=== PATIENT | male | born 1985 | race African-American/Black ===

== ENCOUNTER 2019-12-24 14:25 | Inpatient (IN) | payer OTHER ==
[~2019-12-24] VITALS: Ht 167.6 cm; Wt 75.5 kg
[2019-12-24] MEDS ORDERED: HALO5TAB23 PO (15:09)
[2019-12-24] MEDS ORDERED: CLOZ25TA PO (15:09)
[2019-12-24] MEDS ORDERED: GLYC2TAB21 PO (15:09)
[2019-12-24] MEDS ORDERED: LORA-1000 PO (15:09)
[2019-12-24] MEDS ORDERED: LITH300C3 PO (15:09)
[2019-12-24] MEDS ORDERED: HALO10 PO (15:13)
[2019-12-24 15:30] LABS: BASOPHILS % (AUTO) 0.2 % (0.0-2.0); EOSINOPHILS % (AUTO) 2.4 % (1.0-6.0); HEMATOCRIT 46.9 % (41-53); HEMOGLOBIN 15.4 g/dL (13.5-17.5); LYMPHOCYTES % (AUTO) 13.6 % (22.0-44.0); MEAN CORPUSCULAR HEMOGLOBIN 27.2 pg (26.0-34.0); MEAN CORPUSCULAR HGB CONC 32.9 G/dL (31.0-37.0); MEAN CORPUSCULAR VOLUME 83 fL (80-100); MONOCYTES # (AUTO) 0.6 K/uL (0.1-1.0); MONOCYTES % (AUTO) 8.9 % (2.0-9.0); NEUTROPHILS # (AUTO) 5.3 K/uL (1.8-7.7); NEUTROPHILS % (AUTO) 74.9 % (40.0-70.0); PLATELET COUNT (AUTO) 194 K/uL (150-450); RED BLOOD CELL COUNT(AUTO) 5.68 MIL/uL (4.50-5.90); RED CELL DISTRIBUTION WIDTH 14.7 % (11.5-14.5)
[2019-12-24 15:45] LABS: ANION GAP 9 mmol/L (8-16); CALCIUM, TOTAL 9.6 mg/dL (8.8-10.5); CARBON DIOXIDE 26 mmol/L (22-29); CHLORIDE 106 mmol/L (98-107); CREATININE 0.94 mg/dL (0.60-1.30); GLOMERULAR FILTR. RATE CALC > 60 mL/min (>60); GLUCOSE,RANDOM 94 mg/dL (70-110); LITHIUM 0.63 mmol/L (0.60-1.20); POTASSIUM 3.5 mmol/L (3.5-5.1); SODIUM SERUM 141 mmol/L (136-145); UREA NITROGEN, BLOOD 9 mg/dL (7-18)
[2019-12-24 15:51] LABS: ALANINE AMINOTRANSFERASE 28 U/L (12-78); ALBUMIN 3.9 g/dL (3.4-5.0); ALKALINE PHOSPHATASE 57 U/L (46-116); ASPARTATE AMINOTRANSFERASE 23 U/L (15-37); TOTAL PROTEIN, SERUM 7.6 g/dL (6.4-8.2)
[2019-12-24 17:31] LABS: AMPHET/METH SCREEN,URINE NEGATIVE (NEGATIVE); BARBITURATE SCREEN, URINE NEGATIVE (NEGATIVE); BENZODIAZEPINES SCREEN,URINE NEGATIVE (NEGATIVE); CANNABINOID SCREEN,URINE NEGATIVE (NEGATIVE); COCAINE SCREEN,URINE NEGATIVE (NEGATIVE); METHADONE SCREEN, URINE NEGATIVE (NEGATIVE); OPIATE SCREEN,URINE NEGATIVE (NEGATIVE)
[2019-12-24 17:36] LABS: PHENCYCLIDINE SCREEN,URINE NEGATIVE (NEGATIVE)
[2019-12-24] MEDS ORDERED: SODIUM CHLORIDE 0.9% 1,000 ML IV ONE (17:45)
[2019-12-24] MEDS ORDERED: ONDANSETRON HCL 4 MG/2 ML VIAL IVP PRN ×2 (18:00→22:45)
[2019-12-24] MEDS ORDERED: ACETAMINOPHEN 325 MG TABLET PO PRN ×2 (18:00→22:45)
[2019-12-24] MEDS ORDERED: 0.9% SODIUM CHLORIDE 10 ML SYRINGE IVP PRN ×2 (18:00→22:45)
[2019-12-24 21:04] VITALS: BP 127/96
[2019-12-24] MEDS ORDERED: SODIUM CHLORIDE 0.9% 1,000 ML IV SCH (22:30)
[2019-12-24] MEDS ORDERED: OxyCODONE HCL/ACETAMINOPHEN 5-325 MG TABLET PO PRN ×2 (22:45)
[2019-12-24] MEDS ORDERED: MAGNESIUM HYDROXIDE SUSPENSION 30 ML UDCUP PO PRN (22:45)
[2019-12-24 23:14] VITALS: BP 123/86
[2019-12-25 02:17] LABS: APPEARANCE,URINE CLEAR (CLEAR); BILIRUBIN,URINE NEGATIVE (NEGATIVE); GLUCOSE, URINE (UA) NEGATIVE (NEGATIVE); KETONES,URINE NEGATIVE (NEGATIVE); LEUKOCYTE ESTERASE ,URINE NEGATIVE (NEGATIVE); NITRATE,URINE NEGATIVE (NEGATIVE); PH,URINE 7.5 (5.0-8.0); PROTEIN,URINE NEGATIVE (NEGATIVE); UROBILINOGEN,URINE 0.2 mg/dL (<=1.0)
[2019-12-25 02:26] LABS: OCCULT BLOOD,URINE NEGATIVE (NEGATIVE)
[2019-12-25 04:01] VITALS: BP 114/78
[2019-12-25 06:51] LABS: BASOPHILS % (AUTO) 0.2 % (0.0-2.0); EOSINOPHILS % (AUTO) 3.2 % (1.0-6.0); HEMATOCRIT 43.8 % (41-53); HEMOGLOBIN 14.6 g/dL (13.5-17.5); LYMPHOCYTES # (AUTO) 1.9 K/uL (1.0-4.8); LYMPHOCYTES % (AUTO) 21.1 % (22.0-44.0); MEAN CORPUSCULAR HEMOGLOBIN 27.4 pg (26.0-34.0); MEAN CORPUSCULAR HGB CONC 33.2 G/dL (31.0-37.0); MEAN CORPUSCULAR VOLUME 83 fL (80-100); MONOCYTES # (AUTO) 0.9 K/uL (0.1-1.0); MONOCYTES % (AUTO) 9.7 % (2.0-9.0); NEUTROPHILS # (AUTO) 6.1 K/uL (1.8-7.7); NEUTROPHILS % (AUTO) 65.8 % (40.0-70.0); PLATELET COUNT (AUTO) 200 K/uL (150-450); RED CELL DISTRIBUTION WIDTH 14.5 % (11.5-14.5)
[2019-12-25 07:16] LABS: ALANINE AMINOTRANSFERASE 28 U/L (12-78); ALBUMIN 3.7 g/dL (3.4-5.0); ALKALINE PHOSPHATASE 62 U/L (46-116); ANION GAP 9 mmol/L (8-16); ASPARTATE AMINOTRANSFERASE 20 U/L (15-37); BILIRUBIN,TOTAL 0.7 mg/dL (0.1-1.0); CALCIUM, TOTAL 9.1 mg/dL (8.8-10.5); CARBON DIOXIDE 25 mmol/L (22-29); CHLORIDE 112 mmol/L (98-107); CREATININE 0.85 mg/dL (0.60-1.30); GLOMERULAR FILTR. RATE CALC > 60 mL/min (>60); GLUCOSE,RANDOM 96 mg/dL (70-110); POTASSIUM 3.6 mmol/L (3.5-5.1); SODIUM SERUM 146 mmol/L (136-145); TOTAL PROTEIN, SERUM 7.2 g/dL (6.4-8.2); UREA NITROGEN, BLOOD 8 mg/dL (7-18)
[2019-12-25 07:56] VITALS: BP 130/92
[2019-12-25] MEDS: DOCUSATE SODIUM 100 MG CAPSULE PO SCH ×3 (09:00→20:38)
[2019-12-25] MEDS: FAMOTIDINE 10 MG/ML 2 ML VIAL IVP SCH (09:06)
[2019-12-25] MEDS: METOPROLOL TARTRATE 25 MG TABLET PO SCH ×3 (09:06→20:37)
[2019-12-25 11:19] VITALS: BP 130/85
[2019-12-25] MEDS ORDERED: DEXTROSE 5%-WATER 500 ML IV ONE (14:00)
[2019-12-25 15:33] VITALS: BP 124/93
[2019-12-25 19:29] VITALS: BP 111/73
[2019-12-25 23:39] VITALS: BP 107/65
[2019-12-26 04:52] VITALS: BP 133/80
[2019-12-26 06:46] LABS: BASOPHILS % (AUTO) 0.2 % (0.0-2.0); EOSINOPHILS % (AUTO) 4.6 % (1.0-6.0); HEMATOCRIT 42.4 % (41-53); HEMOGLOBIN 14.1 g/dL (13.5-17.5); LYMPHOCYTES # (AUTO) 1.7 K/uL (1.0-4.8); LYMPHOCYTES % (AUTO) 20.5 % (22.0-44.0); MEAN CORPUSCULAR HEMOGLOBIN 27.5 pg (26.0-34.0); MEAN CORPUSCULAR HGB CONC 33.3 G/dL (31.0-37.0); MEAN CORPUSCULAR VOLUME 82 fL (80-100); MONOCYTES # (AUTO) 1.1 K/uL (0.1-1.0); MONOCYTES % (AUTO) 13.6 % (2.0-9.0); NEUTROPHILS % (AUTO) 61.1 % (40.0-70.0); PLATELET COUNT (AUTO) 207 K/uL (150-450); RED BLOOD CELL COUNT(AUTO) 5.15 MIL/uL (4.50-5.90); RED CELL DISTRIBUTION WIDTH 14.6 % (11.5-14.5)
[2019-12-26 06:56] LABS: ANION GAP 9 mmol/L (8-16); CARBON DIOXIDE 25 mmol/L (22-29); CHLORIDE 108 mmol/L (98-107); CREATININE 0.83 mg/dL (0.60-1.30); GLOMERULAR FILTR. RATE CALC > 60 mL/min (>60); GLUCOSE,RANDOM 94 mg/dL (70-110); POTASSIUM 4.1 mmol/L (3.5-5.1); SODIUM SERUM 142 mmol/L (136-145); UREA NITROGEN, BLOOD 11 mg/dL (7-18)
[2019-12-26 07:04] LABS: CALCIUM, TOTAL 8.7 mg/dL (8.8-10.5)
[2019-12-26 07:22] VITALS: BP 105/65
[2019-12-26 07:54] VITALS: BP 134/91
[2019-12-26] MEDS: METOPROLOL TARTRATE 25 MG TABLET PO SCH ×2 (07:57→16:01)
[2019-12-26] MEDS: DOCUSATE SODIUM 100 MG CAPSULE PO SCH (07:57)
[2019-12-26] MEDS: FAMOTIDINE 10 MG/ML 2 ML VIAL IVP SCH (07:57)
[2019-12-26 11:12] VITALS: BP 116/80
[2019-12-26] MEDS ORDERED: LITH300C3 PO (12:40)
[2019-12-26] MEDS ORDERED: DOCU-342 PO (12:40)
[2019-12-26] MEDS ORDERED: GLYC2TAB21 PO (12:40)
[2019-12-26] MEDS ORDERED: CLOZ100T57 PO ×2 (12:40)
[2019-12-26] MEDS ORDERED: ATRO10DR SL (12:45)
[2019-12-26] MEDS ORDERED: METO25 PO (13:11)
[2019-12-26 15:39] VITALS: BP 122/75
== END 2019-12-26 18:15 | DRG 52 ==
LOC: EMS 14:32 → 5S 20:00
PROVIDERS: ADMIT Internal Medicine; ATTEND Internal Medicine
DX: G93.41 Metabolic encephalopathy (principal); F20.0 Paranoid schizophrenia; R00.0 Tachycardia, unspecified; I10 Essential (primary) hypertension; Z91.14 Patient's other noncompliance with medication regimen
CPT/HCPCS: 51701; 70450; 83735; 93005; 93306; G0480; J3490; J7030; J7060

== ENCOUNTER 2019-12-26 16:24 | Inpatient (IN) | payer MEDICAID ==
[~2019-12-26] VITALS: Ht 177.8 cm; Wt 71.2 kg
[~2019-12-26 16:24] MED LIST: ATRO10DR SL; CLOZ100T32 PO; CLOZ25TA PO; DOCU-342 PO; GLYC2TAB21 PO; HALO10 PO; LITH300C3 PO; LORA-1000 PO; METO25 PO
[2019-12-26] MEDS ORDERED: ZOLPIDEM TARTRATE 10 MG TABLET PO PRN (18:45)
[2019-12-26 19:45] VITALS: BP 116/78
[2019-12-27 05:43] VITALS: BP 117/67
[2019-12-27 08:23] VITALS: BP 114/46
[2019-12-27] MEDS ORDERED: LOPERAMIDE HCL 2 MG CAPSULE PO PRN (09:00)
[2019-12-27] MEDS ORDERED: PETROLATUM,WHITE 28 GM JELLY TP PRN (09:00)
[2019-12-27] MEDS ORDERED: ALBUTEROL SULFATE HFA 90 MCG/PUFF 8 GM INHALER IH PRN (09:00)
[2019-12-27] MEDS ORDERED: ONDANSETRON HCL 4 MG TABLET PO PRN (09:00)
[2019-12-27] MEDS ORDERED: MAGNESIUM HYDROXIDE SUSPENSION 30 ML UDCUP PO PRN (09:00)
[2019-12-27] MEDS ORDERED: GuaiFENesin/D-METHORPHAN [SUGAR-FREE] 200-20MG/10 ML SYRUP UDCUP PO PRN (09:00)
[2019-12-27] MEDS ORDERED: NICOTINE 14 MG/24 HOUR PATCH TD PRN (09:00)
[2019-12-27] MEDS ORDERED: MAG HYDROX/AL HYDROX/SIMETH ES 30 ML SUSPENSION UDCUP PO PRN (09:00)
[2019-12-27] MEDS ORDERED: IBUPROFEN 400 MG TABLET PO PRN (09:00)
[2019-12-27] MEDS ORDERED: DOCUSATE SODIUM 100 MG CAPSULE PO PRN (09:00)
[2019-12-27] MEDS ORDERED: ACETAMINOPHEN 325 MG TABLET PO PRN (09:00)
[2019-12-27] MEDS ORDERED: CloNIDine HCL 0.1 MG TABLET PO PRN (09:00)
[2019-12-27] MEDS: METOPROLOL TARTRATE 25 MG TABLET PO SCH ×3 (10:02→16:30)
[2019-12-27 16:23] VITALS: BP 122/86
[2019-12-28 05:23] VITALS: BP 132/75
[2019-12-28] MEDS: METOPROLOL TARTRATE 25 MG TABLET PO SCH ×3 (09:12→16:18)
[2019-12-28 09:17] VITALS: BP 119/61
[2019-12-28 16:12] VITALS: BP 107/68
[2019-12-29 05:29] VITALS: BP 119/69
[2019-12-29 08:12] VITALS: BP 103/60
[2019-12-29] MEDS: METOPROLOL TARTRATE 25 MG TABLET PO SCH ×3 (08:59→16:28)
[2019-12-29 12:55] VITALS: BP 94/60
[2019-12-29 13:45] VITALS: BP 106/62
[2019-12-29] MEDS: LORazepam 2 MG TABLET PO PRN (18:36)
[2019-12-29] MEDS: HALOPERIDOL 5 MG TABLET PO PRN (18:36)
[2019-12-29 18:47] VITALS: BP 119/68
[2019-12-30 06:07] VITALS: BP 133/73
[2019-12-30 08:22] LABS: BASOPHILS % (AUTO) 0.3 % (0.0-2.0); EOSINOPHILS % (AUTO) 4.2 % (1.0-6.0); HEMATOCRIT 43.6 % (41-53); HEMOGLOBIN 14.4 g/dL (13.5-17.5); LYMPHOCYTES # (AUTO) 1.7 K/uL (1.0-4.8); LYMPHOCYTES % (AUTO) 28.9 % (22.0-44.0); MEAN CORPUSCULAR HEMOGLOBIN 27.5 pg (26.0-34.0); MEAN CORPUSCULAR HGB CONC 33.1 G/dL (31.0-37.0); MEAN CORPUSCULAR VOLUME 83 fL (80-100); MONOCYTES # (AUTO) 0.6 K/uL (0.1-1.0); MONOCYTES % (AUTO) 10.4 % (2.0-9.0); NEUTROPHILS # (AUTO) 3.3 K/uL (1.8-7.7); NEUTROPHILS % (AUTO) 56.2 % (40.0-70.0); PLATELET COUNT (AUTO) 194 K/uL (150-450); RED BLOOD CELL COUNT(AUTO) 5.25 MIL/uL (4.50-5.90); RED CELL DISTRIBUTION WIDTH 14.1 % (11.5-14.5)
[2019-12-30 08:50] VITALS: BP 104/66
[2019-12-30] MEDS ORDERED: CloZAPine 25 MG TABLET PO SCH (09:00)
[2019-12-30] MEDS: METOPROLOL TARTRATE 25 MG TABLET PO SCH ×3 (09:34→16:15)
[2019-12-30 12:35] VITALS: BP 109/66
[2019-12-30 16:11] VITALS: BP 111/70
[2019-12-31 06:27] VITALS: BP 120/78
[2019-12-31] MEDS: METOPROLOL TARTRATE 25 MG TABLET PO SCH ×3 (08:34→17:16)
[2019-12-31] MEDS ORDERED: CloZAPine 25 MG TABLET PO SCH ×2 (09:00→21:00)
[2019-12-31 09:53] VITALS: BP 112/60
[2019-12-31 12:50] VITALS: BP 113/71
[2019-12-31 17:15] VITALS: BP 102/70
[2020-01-01 01:30] VITALS: BP 120/71
[2020-01-01] MEDS: LORazepam 2 MG TABLET PO PRN (08:54)
[2020-01-01] MEDS: METOPROLOL TARTRATE 25 MG TABLET PO SCH ×3 (08:54→16:42)
[2020-01-01] MEDS ORDERED: CloZAPine 25 MG TABLET PO SCH ×2 (09:00→21:00)
[2020-01-01 09:22] VITALS: BP 104/68
[2020-01-01 13:10] VITALS: BP 112/74
[2020-01-01 16:00] VITALS: BP 108/67
[2020-01-02 05:33] VITALS: BP 100/62
[2020-01-02] MEDS: METOPROLOL TARTRATE 25 MG TABLET PO SCH ×3 (09:24→17:10)
[2020-01-02] MEDS: CloZAPine 25 MG TABLET PO SCH ×2 (09:24→20:55)
[2020-01-02] MEDS: LORazepam 2 MG TABLET PO PRN (09:47)
[2020-01-02 10:42] VITALS: BP 110/61
[2020-01-02 12:55] VITALS: BP 98/60
[2020-01-02 18:00] VITALS: BP 106/68
[2020-01-03 03:15] VITALS: BP 110/70
[2020-01-03 08:37] VITALS: BP 110/83
[2020-01-03] MEDS: METOPROLOL TARTRATE 25 MG TABLET PO SCH ×3 (08:47→17:56)
[2020-01-03] MEDS: CloZAPine 25 MG TABLET PO SCH ×2 (08:47→21:19)
[2020-01-03 16:36] VITALS: BP 115/66
[2020-01-04 05:23] VITALS: BP 112/70
[2020-01-04 08:47] VITALS: BP 108/63
[2020-01-04] MEDS: METOPROLOL TARTRATE 25 MG TABLET PO SCH ×3 (08:56→16:32)
[2020-01-04] MEDS ORDERED: CloZAPine 25 MG TABLET PO SCH (09:00)
[2020-01-04 16:07] VITALS: BP 109/78
[2020-01-04] MEDS ORDERED: CloZAPine 100 MG TABLET PO SCH (21:00)
[2020-01-05 00:12] VITALS: BP 121/82
[2020-01-05] MEDS: METOPROLOL TARTRATE 25 MG TABLET PO SCH ×3 (08:26→16:14)
[2020-01-05 08:46] VITALS: BP 97/64
[2020-01-05] MEDS ORDERED: CloZAPine 25 MG TABLET PO SCH (09:00)
[2020-01-05 12:45] VITALS: BP 105/72
[2020-01-05 16:25] VITALS: BP 115/77
[2020-01-05] MEDS: LORazepam 2 MG TABLET PO PRN (17:40)
[2020-01-05] MEDS ORDERED: CloZAPine 100 MG TABLET PO SCH (21:00)
[2020-01-06 00:36] VITALS: BP 110/80
[2020-01-06 08:07] VITALS: BP 105/68
[2020-01-06] MEDS: METOPROLOL TARTRATE 25 MG TABLET PO SCH ×3 (08:09→16:10)
[2020-01-06 08:20] LABS: BASOPHILS % (AUTO) 0.3 % (0.0-2.0); EOSINOPHILS % (AUTO) 6.6 % (1.0-6.0); HEMATOCRIT 41.8 % (41-53); LYMPHOCYTES # (AUTO) 1.9 K/uL (1.0-4.8); LYMPHOCYTES % (AUTO) 30.7 % (22.0-44.0); MEAN CORPUSCULAR HEMOGLOBIN 27.5 pg (26.0-34.0); MEAN CORPUSCULAR HGB CONC 33.4 G/dL (31.0-37.0); MEAN CORPUSCULAR VOLUME 82 fL (80-100); MONOCYTES # (AUTO) 0.6 K/uL (0.1-1.0); MONOCYTES % (AUTO) 9.6 % (2.0-9.0); NEUTROPHILS # (AUTO) 3.3 K/uL (1.8-7.7); NEUTROPHILS % (AUTO) 52.8 % (40.0-70.0); PLATELET COUNT (AUTO) 214 K/uL (150-450); RED BLOOD CELL COUNT(AUTO) 5.08 MIL/uL (4.50-5.90); RED CELL DISTRIBUTION WIDTH 14.2 % (11.5-14.5)
[2020-01-06] MEDS ORDERED: CloZAPine 25 MG TABLET PO SCH (09:00)
[2020-01-06 12:50] VITALS: BP 127/67
[2020-01-06 16:16] VITALS: BP 109/67
[2020-01-06] MEDS: HALOPERIDOL 5 MG TABLET PO PRN (16:17)
[2020-01-06] MEDS: LORazepam 2 MG TABLET PO PRN (16:17)
[2020-01-06] MEDS ORDERED: CloZAPine 100 MG TABLET PO SCH (21:00)
[2020-01-07 06:07] VITALS: BP 106/65
[2020-01-07] MEDS: CloZAPine 100 MG TABLET PO SCH ×2 (08:26→20:16)
[2020-01-07] MEDS: METOPROLOL TARTRATE 25 MG TABLET PO SCH ×3 (08:26→16:17)
[2020-01-07 08:40] VITALS: BP 119/65
[2020-01-07 12:40] VITALS: BP 112/68
[2020-01-07 16:52] VITALS: BP 124/76
[2020-01-08 03:25] VITALS: BP 109/71
[2020-01-08] MEDS: CloZAPine 100 MG TABLET PO SCH ×2 (08:15→20:13)
[2020-01-08] MEDS: METOPROLOL TARTRATE 25 MG TABLET PO SCH ×3 (08:15→16:28)
[2020-01-08 08:20] VITALS: BP 120/78
[2020-01-08 12:38] VITALS: BP 126/70
[2020-01-08 16:04] VITALS: BP 144/86
[2020-01-09 08:07] VITALS: BP 101/63
[2020-01-09] MEDS: METOPROLOL TARTRATE 25 MG TABLET PO SCH ×3 (08:16→16:18)
[2020-01-09] MEDS ORDERED: CloZAPine 25 MG TABLET PO SCH (09:00)
[2020-01-09 12:27] VITALS: BP 112/63
[2020-01-09] MEDS: LORazepam 2 MG TABLET PO PRN (12:29)
[2020-01-09] MEDS: HALOPERIDOL 5 MG TABLET PO PRN (12:29)
[2020-01-09 16:00] VITALS: BP 106/68
[2020-01-09] MEDS ORDERED: CloZAPine 100 MG TABLET PO SCH (21:00)
[2020-01-10 05:55] VITALS: BP 132/77
[2020-01-10 08:54] VITALS: BP 116/63
[2020-01-10] MEDS: METOPROLOL TARTRATE 25 MG TABLET PO SCH ×3 (08:57→16:47)
[2020-01-10] MEDS ORDERED: CloZAPine 25 MG TABLET PO SCH (09:00)
[2020-01-10 17:32] VITALS: BP 109/62
[2020-01-10] MEDS ORDERED: CloZAPine 100 MG TABLET PO SCH (21:00)
[2020-01-11 05:54] VITALS: BP 121/66
[2020-01-11 08:27] VITALS: BP 110/64
[2020-01-11] MEDS: METOPROLOL TARTRATE 25 MG TABLET PO SCH ×3 (08:37→16:43)
[2020-01-11] MEDS: CloZAPine 100 MG TABLET PO SCH ×2 (08:38→20:33)
[2020-01-11 16:44] VITALS: BP 108/75
[2020-01-12 00:16] VITALS: BP 118/64
[2020-01-12] MEDS: METOPROLOL TARTRATE 25 MG TABLET PO SCH ×3 (08:32→16:35)
[2020-01-12] MEDS: CloZAPine 100 MG TABLET PO SCH ×2 (08:32→20:04)
[2020-01-12 08:42] VITALS: BP 120/65
[2020-01-12 12:25] VITALS: BP 119/65
[2020-01-12 16:44] VITALS: BP 117/73
[2020-01-13 01:01] VITALS: BP 133/79
[2020-01-13 07:57] LABS: BASOPHILS % (AUTO) 0.4 % (0.0-2.0); EOSINOPHILS % (AUTO) 6.9 % (1.0-6.0); HEMOGLOBIN 15.2 g/dL (13.5-17.5); LYMPHOCYTES # (AUTO) 2.3 K/uL (1.0-4.8); LYMPHOCYTES % (AUTO) 29.9 % (22.0-44.0); MEAN CORPUSCULAR HEMOGLOBIN 26.9 pg (26.0-34.0); MEAN CORPUSCULAR HGB CONC 32.4 G/dL (31.0-37.0); MEAN CORPUSCULAR VOLUME 83 fL (80-100); MONOCYTES # (AUTO) 0.7 K/uL (0.1-1.0); MONOCYTES % (AUTO) 9.5 % (2.0-9.0); NEUTROPHILS # (AUTO) 4.1 K/uL (1.8-7.7); NEUTROPHILS % (AUTO) 53.3 % (40.0-70.0); PLATELET COUNT (AUTO) 233 K/uL (150-450); RED BLOOD CELL COUNT(AUTO) 5.66 MIL/uL (4.50-5.90); RED CELL DISTRIBUTION WIDTH 14.2 % (11.5-14.5)
[2020-01-13 08:04] VITALS: BP 115/63
[2020-01-13] MEDS: CloZAPine 100 MG TABLET PO SCH ×2 (08:09→20:18)
[2020-01-13] MEDS: METOPROLOL TARTRATE 25 MG TABLET PO SCH ×3 (08:09→16:22)
[2020-01-13 12:40] VITALS: BP 110/76
[2020-01-13 16:37] VITALS: BP 114/69
[2020-01-14] VITALS: BP 118/73
[2020-01-14 08:04] VITALS: BP 117/60
[2020-01-14] MEDS: METOPROLOL TARTRATE 25 MG TABLET PO SCH ×2 (08:12→12:36)
[2020-01-14] MEDS: CloZAPine 100 MG TABLET PO SCH (08:12)
[2020-01-14] MEDS ORDERED: CLOZ100T32 PO ×2 (10:47)
[2020-01-14 12:35] VITALS: BP 112/76
== END 2020-01-14 13:10 | disposition home or self-care (01) | DRG 750 ==
LOC: B3A 19:16 → B2S 12-29 12:04
DX: F20.0 Paranoid schizophrenia (principal); Z59.0 Homelessness; I10 Essential (primary) hypertension; Z79.899 Other long term (current) drug therapy
CPT/HCPCS: 80159; 87081

== ENCOUNTER 2020-01-29 17:36 | Inpatient (IN) | payer MEDICAID, OTHER ==
[~2020-01-29] VITALS: Ht 175.3 cm; Wt 73.5 kg
[~2020-01-29 17:36] MED LIST changes: -ATRO10DR SL; -CLOZ25TA PO; -DOCU-342 PO; -GLYC2TAB21 PO; -HALO10 PO; -LITH300C3 PO; -LORA-1000 PO
[2020-01-29 18:00] LABS: GLUCOSE,POINT OF CARE 91 MG/DL (70-110)
[2020-01-29 18:39] LABS: BASOPHILS % (AUTO) 0.1 % (0.0-2.0); EOSINOPHILS % (AUTO) 0.4 % (1.0-6.0); HEMATOCRIT 43.7 % (41-53); HEMOGLOBIN 14.9 g/dL (13.5-17.5); LYMPHOCYTES # (AUTO) 1.3 K/uL (1.0-4.8); LYMPHOCYTES % (AUTO) 10.5 % (22.0-44.0); MEAN CORPUSCULAR HEMOGLOBIN 27.5 pg (26.0-34.0); MEAN CORPUSCULAR HGB CONC 34.1 G/dL (31.0-37.0); MEAN CORPUSCULAR VOLUME 81 fL (80-100); MONOCYTES # (AUTO) 0.8 K/uL (0.1-1.0); MONOCYTES % (AUTO) 6.3 % (2.0-9.0); NEUTROPHILS # (AUTO) 10.4 K/uL (1.8-7.7); NEUTROPHILS % (AUTO) 82.7 % (40.0-70.0); PLATELET COUNT (AUTO) 181 K/uL (150-450); RED CELL DISTRIBUTION WIDTH 13.6 % (11.5-14.5)
[2020-01-29 18:46] LABS: APPEARANCE,URINE CLEAR (CLEAR); BILIRUBIN,URINE NEGATIVE (NEGATIVE); GLUCOSE, URINE (UA) NEGATIVE (NEGATIVE); KETONES,URINE TRACE mg/dL (NEGATIVE); LEUKOCYTE ESTERASE ,URINE NEGATIVE (NEGATIVE); NITRATE,URINE NEGATIVE (NEGATIVE); OCCULT BLOOD,URINE NEGATIVE (NEGATIVE); PH,URINE 5.5 (5.0-8.0); PROTEIN,URINE NEGATIVE (NEGATIVE); UROBILINOGEN,URINE 0.2 mg/dL (<=1.0)
[2020-01-29 18:48] LABS: ANION GAP 8 mmol/L (8-16); CARBON DIOXIDE 29 mmol/L (22-29); CHLORIDE 105 mmol/L (98-107); CREATININE 1.18 mg/dL (0.60-1.30); GLOMERULAR FILTR. RATE CALC > 60 mL/min (>60); GLUCOSE,RANDOM 95 mg/dL (70-110); POTASSIUM 3.7 mmol/L (3.5-5.1); SODIUM SERUM 142 mmol/L (136-145); UREA NITROGEN, BLOOD 14 mg/dL (7-18)
[2020-01-29 18:51] LABS: INR 1.1 (0.9-1.1); PROTHROMBIN TIME 10.9 SEC (9.4-11.6)
[2020-01-29 18:52] LABS: AMPHET/METH SCREEN,URINE NEGATIVE (NEGATIVE); BARBITURATE SCREEN, URINE NEGATIVE (NEGATIVE); BENZODIAZEPINES SCREEN,URINE NEGATIVE (NEGATIVE); CANNABINOID SCREEN,URINE NEGATIVE (NEGATIVE); COCAINE SCREEN,URINE NEGATIVE (NEGATIVE); METHADONE SCREEN, URINE NEGATIVE (NEGATIVE); OPIATE SCREEN,URINE NEGATIVE (NEGATIVE); PHENCYCLIDINE SCREEN,URINE NEGATIVE (NEGATIVE)
[2020-01-29 18:54] LABS: ALANINE AMINOTRANSFERASE 24 U/L (12-78); ALBUMIN 3.8 g/dL (3.4-5.0); ALKALINE PHOSPHATASE 74 U/L (46-116); ASPARTATE AMINOTRANSFERASE 15 U/L (15-37); BILIRUBIN,TOTAL 0.6 mg/dL (0.1-1.0); CREATINE KINASE, TOTAL ONLY 61 U/L (39-308); TOTAL PROTEIN, SERUM 7.8 g/dL (6.4-8.2)
[2020-01-29 18:56] LABS: AMMONIA 16 umol/L (11-32); LACTIC ACID 1.3 mmol/L (0.4-2.0); TROPONIN I < 0.02 ng/mL (0.00-0.05)
[2020-01-29 18:58] LABS: LITHIUM < 0.20 mmol/L (0.60-1.20)
[2020-01-29] MEDS ORDERED: HALOPERIDOL 5 MG TABLET PO PRN (22:30)
[2020-01-29] MEDS ORDERED: ZOLPIDEM TARTRATE 10 MG TABLET PO PRN (22:30)
[2020-01-29] MEDS ORDERED: LORazepam 2 MG TABLET PO PRN (22:30)
[2020-01-30 00:45] VITALS: BP 138/62
[2020-01-30] MEDS ORDERED: PNEUMOCOCCAL VACCINE POLYVALENT 0.5 ML VIAL [PPSV23] IM ONE (03:30)
[2020-01-30 07:33] LABS: CHOL/HDL RATIO 5.2 (4.2-7.3)
[2020-01-30 08:23] VITALS: BP 105/62
[2020-01-30] MEDS ORDERED: MAG HYDROX/AL HYDROX/SIMETH ES 30 ML SUSPENSION UDCUP PO PRN (08:30)
[2020-01-30] MEDS ORDERED: PETROLATUM,WHITE 28 GM JELLY TP PRN (08:30)
[2020-01-30] MEDS ORDERED: ONDANSETRON HCL 4 MG TABLET PO PRN (08:30)
[2020-01-30] MEDS ORDERED: IBUPROFEN 400 MG TABLET PO PRN (08:30)
[2020-01-30] MEDS ORDERED: ALBUTEROL SULFATE HFA 90 MCG/PUFF 8 GM INHALER IH PRN (08:30)
[2020-01-30] MEDS ORDERED: GuaiFENesin/D-METHORPHAN [SUGAR-FREE] 200-20MG/10 ML SYRUP UDCUP PO PRN (08:30)
[2020-01-30] MEDS ORDERED: LOPERAMIDE HCL 2 MG CAPSULE PO PRN (08:30)
[2020-01-30] MEDS ORDERED: CloNIDine HCL 0.1 MG TABLET PO PRN (08:30)
[2020-01-30] MEDS ORDERED: ACETAMINOPHEN 325 MG TABLET PO PRN (08:30)
[2020-01-30] MEDS ORDERED: NICOTINE 14 MG/24 HOUR PATCH TD PRN (08:30)
[2020-01-30] MEDS ORDERED: DOCUSATE SODIUM 100 MG CAPSULE PO PRN (08:30)
[2020-01-30] MEDS ORDERED: MAGNESIUM HYDROXIDE SUSPENSION 30 ML UDCUP PO PRN (08:30)
[2020-01-30 16:34] VITALS: BP 138/88
[2020-01-30] MEDS: CloZAPine 100 MG TABLET PO SCH (21:33)
[2020-01-31 08:38] VITALS: BP 123/69
[2020-01-31] MEDS: CloZAPine 100 MG TABLET PO SCH ×2 (08:40→20:23)
[2020-01-31 16:11] VITALS: BP 128/62
[2020-02-01 08:25] VITALS: BP 111/70
[2020-02-01] MEDS: CloZAPine 100 MG TABLET PO SCH ×2 (08:29→20:51)
[2020-02-01 16:51] VITALS: BP 119/79
[2020-02-02 05:46] VITALS: BP 118/82
[2020-02-02] MEDS: CloZAPine 100 MG TABLET PO SCH (08:31)
[2020-02-02 09:31] VITALS: BP 118/70
[2020-02-02] MEDS ORDERED: CLOZ100T31 PO ×2 (15:36)
[2020-02-02 16:38] VITALS: BP 122/69
== END 2020-02-02 17:50 | disposition home or self-care (01) | DRG 750 ==
LOC: EMS 17:41 → B3A 22:19
PROC: 3E0234Z Introduction of Serum, Toxoid and Vaccine into Muscle, Percutaneous Approach (ICD-10-PCS; principal; 2020-01-30)
DX: F20.0 Paranoid schizophrenia (principal); G93.40 Encephalopathy, unspecified; I47.1 Supraventricular tachycardia; R56.9 Unspecified convulsions; I10 Essential (primary) hypertension; D72.829 Elevated white blood cell count, unspecified; Z23 Encounter for immunization
CPT/HCPCS: 70450; 72125; 83605; 90732; 93005; G0480